=== PATIENT | female | born 1975 | race Caucasian/White ===

== ENCOUNTER 2023-07-02 12:34 | Day surgery (SDC) | payer OTHER ==
[~2023-07-02] VITALS: Ht 165.1 cm; Wt 77.1 kg
[2023-07-02] MEDS ORDERED: ERGO400 PO (13:37)
[2023-07-02] MEDS ORDERED: Prilosec10 M1 PO (13:37)
--- NOTE | 2023-07-02 15:02 | NUR ---
07/02/23 7462 [address]ona [address]PO[address] WITH DR EARL ABOUT PTS AMOXICILLIN ALLERGY. DOC DETERMINED THAT HE WAS OK WITH GIVING THE PT ANCEF.
[2023-07-02 15:44] VITALS: BP 105/88
--- NOTE | 2023-07-02 16:00 | NUR ---
07/02/23 1600 CARL PAUL IV REMOVED. WNL. CANNULA INTACT. AURA WELL
== END 2023-07-02 16:22 | disposition home or self-care (01) ==
LOC: ORSCSDS 12:34
PROVIDERS: Podiatrist Foot & Ankle Surgery
PROC: 0QBN0ZZ Excision of Right Metatarsal, Open Approach (ICD-10-PCS; principal; 2023-07-02 14:00)
DX: M20.5X1 Other deformities of toe(s) (acquired), right foot (principal); K21.9 Gastro-esophageal reflux disease without esophagitis; Z87.891 Personal history of nicotine dependence; Z79.899 Other long term (current) drug therapy
CPT/HCPCS: J0690; J2001; J2250; J2704; J2795; J3010; J7120

== ENCOUNTER 2023-10-01 12:32 | Day surgery (SDC) | payer OTHER ==
[~2023-10-01] VITALS: Ht 165.1 cm; Wt 80.3 kg
[~2023-10-01 12:32] MED LIST: ERGO400 PO; HAIR, SKIN AND1 EAC3 PO; Lactated Ringer's 1,000 ML IV ONE; Lidocaine HCl 2% 10 ML SDA ONE; MULTI-VITAMIN1 EAC2 PO; Prilosec10 M1 PO; Ropivacaine 0.5% HCl/Pf 5 MG/ML 20ML VIAL ONE; Vitamin B Comple1 EA PO; ZINC PLUS PO
[2023-10-01] MEDS ORDERED: CeFAZolin Sodium 2,000 MG VIAL ONE (12:57)
[2023-10-01] MEDS ORDERED: NS 50 ML IV ONE (12:57)
[2023-10-01] MEDS ORDERED: B-12500 MC2 PO (13:14)
[2023-10-01] MEDS ORDERED: ALBU90OI (13:15)
[2023-10-01] MEDS ORDERED: Lactated Ringer's 1,000 ML IV ONE (13:40)
[2023-10-01] MEDS ORDERED: propofoL 20 ML IV ONE (14:08)
[2023-10-01] MEDS ORDERED: FentaNYL Citrate 50 MCG/ML 2 ML Injection ONE (14:09)
[2023-10-01] MEDS ORDERED: Ondansetron HCl 2 MG / ML 2ML Vial ONE (14:39)
[2023-10-01] MEDS ORDERED: Dexamethasone Sod Phos 10 MG/ML 1ML VIAL ONE (14:39)
--- NOTE | 2023-10-01 15:05 | NUR ---
10/01/23 Bronwyn Johnson 10ML OF ROPIVACAINE 0.5% MIXED AND VERIFIED WITH 0.05ML OF EPI (1MG/ML) TO MAKE ROPIVACAINE 0.5% WITH EPI 1:200,000 FOR INJECTION AT THE OPSITE BY DR EARL.
[2023-10-01] MEDS ORDERED: EPINEPhrine HCl 1 MG/ML 1ML Amp XX ONE (15:12)
[2023-10-01 15:48] VITALS: BP 115/60
--- NOTE | 2023-10-01 16:33 | NUR ---
10/01/23 3507 Giovana El PT STATED SHE WAS NOT HAVING ANY PAIN BUT WAS HAVING NAUSEA. RN OFFERED TO CONTACT FOR ANTINAUSEA MEDICATION BUT PATIENT REFUSED AND STATED SHE JUST WANTED TO GO HOME.
== END 2023-10-01 16:30 | disposition home or self-care (01) ==
LOC: ORSCSDS 12:32
PROVIDERS: Podiatrist Foot & Ankle Surgery
PROC: 0JBQ0ZX Excision of Right Foot Subcutaneous Tissue and Fascia, Open Approach, Diagnostic (ICD-10-PCS; principal; 2023-10-01 13:55)
PROC: 0QSN0ZZ Reposition Right Metatarsal, Open Approach (ICD-10-PCS; principal; 2023-10-01 13:55)
DX: M77.41 Metatarsalgia, right foot (principal); G57.61 Lesion of plantar nerve, right lower limb; J45.909 Unspecified asthma, uncomplicated; Z79.899 Other long term (current) drug therapy
CPT/HCPCS: 88304; J0171; J0690; J1100; J2001; J2405; J2704; J2795; J3010; J7120

== ENCOUNTER 2024-04-14 10:45 | Day surgery (SDC) | payer OTHER ==
[~2024-04-14] VITALS: Ht 165.1 cm; Wt 80.0 kg
[~2024-04-14 10:45] MED LIST changes: +ALBU90OI; +B-12500 MC2 PO; -Lactated Ringer's 1,000 ML IV ONE; -Lidocaine HCl 2% 10 ML SDA ONE; -Ropivacaine 0.5% HCl/Pf 5 MG/ML 20ML VIAL ONE
[2024-04-14] MEDS ORDERED: NS 50 ML IV ONE (11:51)
[2024-04-14] MEDS ORDERED: CeFAZolin Sodium 2,000 MG VIAL ONE (11:51)
[2024-04-14] MEDS ORDERED: Lactated Ringer's 1,000 ML IV ONE ×3 (11:51→14:52)
[2024-04-14] MEDS ORDERED: Dexamethasone Sod Phos 10 MG/ML 1ML VIAL ONE (12:29)
[2024-04-14] MEDS ORDERED: propofoL 20 ML IV ONE ×3 (12:29→12:45)
[2024-04-14] MEDS ORDERED: FentaNYL Citrate 50 MCG/ML 2 ML Injection ONE (12:29)
[2024-04-14] MEDS ORDERED: Ondansetron HCl 2 MG / ML 2ML Vial ONE (12:29)
[2024-04-14] MEDS ORDERED: Ketorolac Tromethamine 30mg Vial ONE (12:29)
[2024-04-14] MEDS ORDERED: Lidocaine 2%-Epineph 1:100000 20 ML MDV INJ ONE (12:40)
[2024-04-14] MEDS ORDERED: Bupivacaine 0.5% W/EPI 1:200000 SDV 30ML INJ ONE ×2 (13:06)
[2024-04-14] MEDS ORDERED: Famotidine 10 MG/ML 2ML Vial ONE (13:38)
[2024-04-14 14:11] VITALS: BP 118/76
--- NOTE | 2024-04-14 14:28 | NUR ---
04/14/24 1428 CARL PAUL' IN WITH PT AT BEDSIDE. PT EATING AND DRINKING WO DIFF. PT LAUGHING AND GOOD MOOD.
== END 2024-04-14 14:45 | disposition home or self-care (01) ==
LOC: ORSCSDS 10:45
PROVIDERS: Podiatrist Foot & Ankle Surgery
PROC: 01BG0ZZ Excision of Tibial Nerve, Open Approach (ICD-10-PCS; principal; 2024-04-14 12:00)
PROC: 0Q8N0ZZ Division of Right Metatarsal, Open Approach (ICD-10-PCS; principal; 2024-04-14 12:00)
DX: M77.41 Metatarsalgia, right foot (principal); K21.9 Gastro-esophageal reflux disease without esophagitis; Z79.899 Other long term (current) drug therapy; Z87.891 Personal history of nicotine dependence
CPT/HCPCS: 88304; C1713; J0690; J1100; J1885; J2405; J2704; J3010; J7120

== ENCOUNTER 2024-06-01 07:38 | Day surgery (SDC) | payer OTHER ==
[~2024-06-01] VITALS: Ht 165.1 cm; Wt 84.1 kg
[~2024-06-01 07:38] MED LIST changes: +Lactated Ringer's 1,000 ML IV ONE
[2024-06-01] MEDS ORDERED: Lactated Ringer's 1,000 ML IV ONE (08:12)
--- NOTE | 2024-06-01 08:42 | NUR ---
06/01/24 0842 Krista Aguilar TIME OUT TAKEN TO VERIFY CORRECT PT, PROCEDURE, LOCATION, ALLERGIES AND MEDICATION. PT ELECTED TO PROCEED WITH BLOCK, START AT 0840 END AT 0842. PT TOLERATED WELL
[2024-06-01] MEDS ORDERED: FentaNYL Citrate 50 MCG/ML 2 ML Injection ONE (09:03)
[2024-06-01] MEDS ORDERED: Ketorolac Tromethamine 30mg Vial ONE (09:03)
[2024-06-01] MEDS ORDERED: propofoL 20 ML IV ONE (09:03)
[2024-06-01] MEDS ORDERED: Ondansetron HCl 2 MG / ML 2ML Vial ONE (09:03)
[2024-06-01] MEDS ORDERED: Dexamethasone Sod Phos 10 MG/ML 1ML VIAL ONE (09:03)
[2024-06-01 10:20] VITALS: BP 112/61
== END 2024-06-01 10:05 | disposition home or self-care (01) ==
LOC: ORSCSDS 07:38
PROVIDERS: Orthopaedic Surgery
PROC: 01N54ZZ Release Median Nerve, Percutaneous Endoscopic Approach (ICD-10-PCS; principal; 2024-06-01 09:00)
PROC: 0LN Tendons, Release (ICD-10-PCS; principal; 2024-06-01 09:00)
DX: G56.01 Carpal tunnel syndrome, right upper limb (principal); M65.4 Radial styloid tenosynovitis [de Quervain]; Z87.891 Personal history of nicotine dependence; Z79.899 Other long term (current) drug therapy
CPT/HCPCS: J1100; J1885; J2405; J2704; J3010; J7120

== ENCOUNTER 2024-07-31 06:15 | Day surgery (SDC) | payer OTHER ==
[~2024-07-31] VITALS: Ht 165.1 cm; Wt 80.9 kg
[2024-07-31] VITALS (11 sets, daily range): BP systolic 100–133; BP diastolic 62–80
[~2024-07-31 06:15] MED LIST changes: -Lactated Ringer's 1,000 ML IV ONE; +OMEP20ER PO; -Prilosec10 M1 PO; +VITAMIN D325 MC3 PO
[2024-07-31] MEDS ORDERED: Phenazopyridine HCl 100 MG Tab PO ONE (06:20)
[2024-07-31] MEDS ORDERED: Lactated Ringer's 1,000 ML IV SCH ×2 (06:20→10:30)
[2024-07-31] MEDS ORDERED: CeFAZolin Sodium 2,000 MG in NS 100 ML IV SCH (06:20)
[2024-07-31] MEDS ORDERED: B COMPLEX FORM0.4 MG PO (06:32)
[2024-07-31] MEDS ORDERED: MULVITA PO (06:32)
[2024-07-31] MEDS ORDERED: Bupivacaine 0.5% HCl 5 MG/ML 30MLVIAL ONE (06:56)
[2024-07-31] MEDS ORDERED: FentaNYL Citrate 50 MCG/ML 5 ML Injection ONE (07:12)
[2024-07-31] MEDS ORDERED: Ondansetron HCl 2 MG / ML 2ML Vial ONE (07:13)
[2024-07-31] MEDS ORDERED: Lidocaine HCl 2% 20 ML MDV ONE (07:13)
[2024-07-31] MEDS ORDERED: Dexamethasone Sod Phos 10 MG/ML 1ML VIAL ONE (07:13)
[2024-07-31] MEDS ORDERED: propofoL 20 ML IV ONE (07:13)
[2024-07-31] MEDS ORDERED: Rocuronium Bromide 10 MG/ML 5ML Injection IV ONE ×2 (07:13→10:00)
[2024-07-31] MEDS ORDERED: HYDROmorphone HCl/Pf 1MG SYR IV PRN ×2 (07:55→10:30)
[2024-07-31] MEDS ORDERED: Atropine Sulfate 0.1 MG/ML 10ML SYR IV PRN (07:55)
[2024-07-31] MEDS ORDERED: Labetalol HCL 5 MG/ML 4ML Injection (Single Dose) IV PRN (07:55)
[2024-07-31] MEDS ORDERED: FentaNYL Citrate 50 MCG/ML 2 ML Injection IV PRN ×3 (07:55)
[2024-07-31] MEDS ORDERED: Albuterol 2.5 MG/3 ML VIAL INH PRN (07:55)
[2024-07-31] MEDS ORDERED: Ondansetron HCl 2 MG / ML 2ML Vial IV PRN ×2 (08:00→10:35)
[2024-07-31] MEDS ORDERED: Prochlorperazine Edisylate 10 mg Vial IV PRN (08:00)
[2024-07-31] MEDS ORDERED: Artificial Tear Opth Oint 3.5 GM ONE (08:10)
[2024-07-31] MEDS ORDERED: Labetalol HCL 5 MG/ML 4ML Injection (Single Dose) ONE (08:17)
[2024-07-31] MEDS ORDERED: Ketorolac Tromethamine 30mg Vial ONE (09:59)
[2024-07-31] MEDS ORDERED: Glycopyrrolate 0.2 MG/ML 5ML VIAL ONE (10:19)
[2024-07-31] MEDS ORDERED: Neostigmine Methylsulfate 5MG/5ML SYR ONE (10:19)
[2024-07-31] MEDS ORDERED: DiphenhydrAMINE HCL 25 MG Cap PO PRN (10:25)
[2024-07-31] MEDS ORDERED: OxyCODONE 5 mg/Acetamin 325 mg TABLET PO PRN (10:25)
[2024-07-31] MEDS ORDERED: FLU VACC TS2024-25(6MOS UP)/PF 45 MCG/0.5 ML SYRINGE IM SCH (10:25)
[2024-07-31] MEDS ORDERED: Simethicone 80 MG Chew PO PRN (10:30)
[2024-07-31] MEDS ORDERED: Metoclopramide HCl 5MG / ML 2ML Vial IV PRN (10:30)
[2024-07-31] MEDS ORDERED: OxyCODONE 10/Acetamin 325 TABLET PO PRN (10:35)
[2024-07-31] MEDS ORDERED: Naloxone HCl 0.4MG / ML 1ML Vial IV PRN (10:35)
--- NOTE | 2024-07-31 10:55 | NUR ---
POST OP ARRIVAL TO SURGICAL UNIT VIA GOURNEY, SLID TO HOSPITAL BED. DROWSY BUT OPENS EYES & RESPONDS APPROP. ASSESSMENT CHARTED. IVF INFUSING. ALLOWING TO REST w/ EYES CLOSED.
[2024-07-31] MEDS ORDERED: Ketorolac Tromethamine 30mg Vial IV SCH (12:00)
[2024-07-31] MEDS ORDERED: Percocet 5-3251 EACH PO (14:40)
[2024-07-31] MEDS ORDERED: Ibuprofen 400 MG Tab PO SCH (16:00)
--- NOTE | 2024-07-31 17:55 | NUR ---
DISCHARGE SNACKING & DRINKING FLUIDS. VOIDED x 2. PAIN WELL CONTROLLED. FEELS COMFORTABLE w/ DC. NO VAG BLEEDING NOTED. SURGICAL SITES WNL. ESCORTED OUT VIA WC.
[2024-08-01] MEDS ORDERED: Polyethylene Glycol 3350 17 gm PO SCH (09:00)
[2024-08-01] MEDS ORDERED: Enoxaparin 40 MG/0.4 ML SYR SC SCH (09:00)
== END 2024-07-31 17:55 | disposition home or self-care (01) ==
LOC: ORSCMMR 06:15 → ORD 07:30 → ORSCMMR 07:30 → SURS 10:55 → ORSCMMR 17:55
PROVIDERS: Obstetrics & Gynecology
PROC: 0UT74ZZ Resection of Bilateral Fallopian Tubes, Percutaneous Endoscopic Approach (ICD-10-PCS; principal; 2024-07-31 07:30)
PROC: 0UT94ZZ Resection of Uterus, Percutaneous Endoscopic Approach (ICD-10-PCS; principal; 2024-07-31 07:30)
DX: D25.9 Leiomyoma of uterus, unspecified (principal); N80.03 Adenomyosis of the uterus; Q50.5 Embryonic cyst of broad ligament; K66.0 Peritoneal adhesions (postprocedural) (postinfection); K21.9 Gastro-esophageal reflux disease without esophagitis; Z79.899 Other long term (current) drug therapy
CPT/HCPCS: 58571; S2900; 86850; 86900; 86901; 88307; A9270; J0690; J1100; J1171; J1885; J2405; J2704; J2710; J3010; J7120